=== PATIENT | male | born 1950 | race Caucasian/White ===

== ENCOUNTER 2017-06-18 05:55 | Emergency (ER) | payer OTHER ==
[~2017-06-18] VITALS: Ht 175.3 cm; Wt 104.3 kg
[2017-06-18] MEDS ORDERED: LISINOPRIL10 MG PO (06:10)
[2017-06-18] MEDS ORDERED: ASPIR-LOW81 MG PO (06:10)
[2017-06-18] MEDS ORDERED: LIPITOR20 MG PO (06:10)
[2017-06-18] MEDS ORDERED: CEPHALEXIN500 MG PO (06:56)
--- OUTSIDE RECORDS SUMMARY | 2017-06-18 06:56 | XMS | Encounter Summary ---
Demographics + + + | Address | [address] [place] [address] | | | [place] [address] | + + + | Home Phone | [phone] | + + + | Preferred Language | Unknown | + + + | Marital Status | | + + + | Mandaeism Affiliation | Unknown | + + + | Race | White | + + + | Ethnic Group | Not or | + + + Author + + + | Author | | + + + | Organization | | + + + | Address | [address] | | | [place] [address] | + + + | Phone | [phone] | + + + Reason for Visit + + | None recorded. | + + Instructions None recorded.Discussion Note: None recorded.Patient educational handouts: No inf ormation available. Plan of Care + + + + + | Reminders | | | Provider | | | | | | + + + + + | Appointments | None recorded. | | | + + + + + | Lab | None recorded. | | | + + + + + | Referral | None recorded. | | | + + + + + | Procedures | None recorded. | | | + + + + + | Surgeries | None recorded. | | | + + + + + | Imaging | None recorded. | | | + + + + + Medications + + + + | Name | Start Date | | | | | | + + + + + +---+ | atorvastatin 20 mg tablet | | | Take 1 tablet every day by oral route. | | + +---+ | lisinopril 10 mg-hydrochlorothiazide 12.5 | | | mg tablet TAKE ONE TABLET BY MOUTH DAILY | | + +---+ | Longs Adult Low Strength ASA 81 mg | | | tablet,delayed release Take 1 tablet every | | | day by oral route. | | + +---+ Medications Administered None recorded. Vitals + + + + + | Height | Weight | BMI | Blood Pressure | + + + + + | 5 ft 9 in | 231 lbs | 34.1 kg/m2 | 124/70 mm[Hg] | + + + + + Lab Results +-------+-------+-------+-------+-------+-------+-------+-------+-------+-------+-------+ | Date | Name | Speci | Resul | Inter | Descr | Value | Range | Statu | Addre | | | | | men | t | preta | iptio | | | s | ss | | | | | | | tion | n | | | | | | | | | | | | | | | | | | | | | | | | | | | | | | | | | | | | | | | | | | | | | | | | | | | | | | +-------+-------+-------+-------+-------+-------+-------+-------+-------+-------+-------+ +--------+--------+---+---+---+--------+---+---+-------+--------+ | 03/31/ | Surgic | | | | | | | Final | [facility] | | 2016 | al | | | | Result | | | | Medica | | | Pathol | | | | s | | | | l | | | ogy | | | | | | | | Center | | | | | | | | | | | | | | | | | | | | | | (Main) | | | | | | | | | | | : [address] | | | | | | | | | | | | | | | | | | | | [address] | | | | | | | | | [address] | | | | | | | | | [address], | | | | | | | | | | | [place] | | | | | | | | | | | rg | +--------+--------+---+---+---+--------+---+---+-------+--------+ | 03/10/ | Biopsy | | | | | | | Final | [facility] | | 2016 | , Skin | | | | Result | | | | Medica | | | | | | | s | | | | l | | | (PROC) | | | | | | | | Center | | | | | | | | | | | | | | | | | | | | | | (Main) | | | | | | | | | | | : [address] | | | | | | | | | | | | | | | | | | | | | [address] | | | | | | | | | | [address] | | | | | | | | | | | [address], | | | | | | | | | | | [place] | | | | | | | | | | | rg | +--------+--------+---+---+---+--------+---+---+-------+--------+ Allergies +------+ +------+ + +-------+ | Code | Code System | Name | Reaction | Severity | Onset | +------+ +------+ + +-------+ +------+---+---+---+ | NKDA | | | | +------+---+---+---+ Problems + + + + + + | Name | Status | Onset Date | Source | | | | | | | | + + + + + + + +--------+ + + | Coronary | Active | 06/10/2016 | | | Arteriosclerosis | | | | + +--------+ + + | Hyperlipidemia | Active | | Encounter | + +--------+ + + | Benign Essential | Active | | Encounter | | Hypertension | | | | + +--------+ + + | Benign Prostatic | Active | | Encounter | | Hyperplasia | | | | + +--------+ + + | Actinic Keratosis | Active | | Encounter | + +--------+ + + | Cervical | Active | | Encounter | | Radiculopathy | | | | + +--------+ + + | 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 Vaccine List + + | Vaccine Type | + + | Tdap | + + | 12/12/2008 1 | + + | 12/12/2008 | + + Social History + + +---+ | Smoking Status | Never Smoker | | + + +---+ Past Encounters + + | 04/05/2017Aaron Sunshine MD: [address] [address], Ph. | | | + + | 03/31/2017Primary Malignant Neoplasm of Skin of Face; Actinic KeratosisAaron Sunshine, | | : [address] [employer], [place] [address], Ph. | |Aaron Sunshine MD: [address] [employer], [place] [address], Ph. | + + | 03/15/2017Aaron Sunshine MD: [address] [employer], [place] [address], Ph. | | | + + | 03/10/2017Neoplasm of Uncertain Behavior of SkinAaron Sunshine MD: [address] | | [employer], [place] [address], Ph. | |Aaron Sunshine MD: [address] [address], Ph. | + + History of Present Illness Note:He is here today for a stitch removal<div>
</div><div>removed 9 stitches from right cheek of pt. </div> Review of Systems None recorded. Physical Exam None recorded."
--- OUTSIDE RECORDS SUMMARY | 2017-06-18 06:56 | XMS | Encounter Summary ---
Demographics + + + | Address | [address] [place] [address] | | | [place] [address] | + + + | Home Phone | [phone] | + + + | Preferred Language | Unknown | + + + | Marital Status | | + + + | Church Affiliation | Unknown | + + + | Race | White | + + + | Ethnic Group | Not or | + + + Author + + + | Author | | + + + | Organization | | + + + | Address | [address] | | | [place] [address] | + + + | Phone | [phone] | + + + Reason for Visit + + | None recorded. | + + Instructions + + | 1. Neoplasm of uncertain behavior of skin | + + + + | Discussion Note | + + | 1. Excision, Face. wait on Pathology for billing. Lesion size 1.2 cm, right cheek | | 2. Layered repair 2.6 cm, right cheek. | + + Patient educational handouts: No information available. Plan of Care + + + [...] | 231 lbs | 34.1 kg/m2 | 114/64 mm[Hg] | + + + + + Lab Results None recorded. Allergies +------+ +------+ + +-------+ | Code [...] + | Tdap | + + | 12/11/2008 1 | + + | 12/12/2008 | + + Social History + + +---+ | Smoking Status | Never Smoker | | + + +---+ Past Encounters + + | 03/10/2017Neoplasm of Uncertain Behavior of SkinTimvenessa Sunshine MD: [address] | | [facility] [address], [place] [address], Ph. | |Aaron Sunshine MD: [address], [place] [address], Ph. | + + History of Present Illness Note:Patient is here for a right check lesion excision. Review of Systems +--------+ + | | | +--------+ + | Notes: | non healing lesion, right cheek. | +--------+ + Physical Exam +--------+ + | | | +--------+ + | Notes: | 1.2 cm linear lesion, crusted, non healing | | | superficial ulceration, Rt cheek | +--------+ +"
--- OUTSIDE RECORDS SUMMARY | 2017-06-18 06:56 | XMS | Encounter Summary ---
Demographics + + + | Address | [address] [place] [address] | | | [place] [address] | + + + | Home Phone | [phone] | + + + | Preferred Language | Unknown | + + + | Marital Status | | + + + | Mosque Affiliation | Unknown | + + + | Race | White | + + + | Ethnic Group | Not or | + + + Author + + + | Author | | + + + | Organization | | + + + | Address | [address] | | | [place] [address] | + + + | Phone | [phone] | + + + Reason for Visit + + | None recorded. | + + Instructions + + | 1. Primary malignant neoplasm of skin of face | + + | biopsy, skin (PROC) | + + | 2. Actinic keratosis | + + | actinic keratosis: care instructions | + + + + | Discussion Note | + + | Excision of basal cell carcinoma: 4-5 cm lesion size | | Layered closure: 5 cm | | Cryo, left ear | + + Plan of Care + + + + [...] + + + + | Procedures | Biopsy, Skin (PROC) | 03/31/2017 | [facility] | | | | | Center ([facility]) | + + + + + | [...] | | | | +-------+-------+-------+-------+-------+-------+-------+-------+-------+-------+-------+ +--------+--------+---+---+---+--------+---+---+-------+--------+ | 03/10/ | Biopsy | | | | | | | Final | [facility] | | 2017 | , Skin | | | | [...] + +---+ Past Encounters + + | 03/31/2017Primary Malignant Neoplasm of Skin of Face; Actinic KeratosisAaron Sunshine | | : [address] [address], [place]. | |Aaron Sunshine MD: [address] [place] [address], Ph. | + + | 03/15/2017Aaron Sunshine MD: [address], [place] [address], Ph. | | | + + | 03/10/2017Neoplasm of Uncertain Behavior of SkinAaron Sunshine MD: [address] [facility] | | [facility] [address], [place] [address], Ph. | |Aaron Sunshine MD: [address], [place] [address], Ph. | + + History of Present Illness Note:He is here today for an excision from his right cheek<div>
</div><div>spo t on opening of left ear</div><div>
</div><div>
</div><div>
</div><div>Russell had e xcision of lesion about right cheek on 03/10/2017. I suspected this to be a malignancy and it was a nodular pattern basal cell carcinoma. Unfortunately, although I took what I thought we re generous margins of the grossly evident lesion, that cancer abutted against margins and f urther wider excision is indicated. </div><div>
</div><div>Pt also has a keratosis, left external ear of concern</div> Review of Systems +--------+ + | | | +--------+ + | Notes: | negative ros except for skin lesions | +--------+ + Physical Exam +--------+ + | | | +--------+ + | Notes: | Previous excision has healed very well. | | | This is just under 3 cm excision. upon | | | close inspection, there are multiple | | | additional tiny red papules superior to | | | upper limit of that excision. I suspect pt | | | has multifocal nodular BCC.<div>Area of | | | concern including previous excision and | | | area superior with involvement of distinct | | | small papules of suspicious appearance in | | | 4-5 CM.</div><div>
</div><div>Pt also | | | has an AK involving the external left ear | | | antitragus and cryo is applied to that | | | lesion.</div> | +--------+ +"
--- OUTSIDE RECORDS SUMMARY | 2017-06-18 06:56 | XMS | Encounter Summary ---
Demographics + + + | Address | [address] [place] [address] | | | [place] [address] | + + + | Home Phone | [phone] | + + + | Preferred Language | Unknown | + + + | Marital Status | | + + + | Restoration Affiliation | Unknown | + + + | Race | White | + + + | Ethnic Group | Not or | + + + Author + + + | Author | | + + + | Organization | | + + + | Address | [address] | | | [place] [address] | + + + | Phone | [phone] | + + + Reason for Visit + + | None recorded. | + + Instructions + + | 1. Bee sting | + + | EpiPen 2-Scotty 0.3 mg/0.3 mL injection, auto-injector | + + | 2. Bee sting-induced anaphylaxis | + + | Solu-Medrol (PF) 125 mg/2 mL solution for injection | + + | diphenhydramine 50 mg/mL injection solution | + + | famotidine (PF) 20 mg/2 mL intravenous solution | + + | sodium chloride 0.9 % intravenous solution | + + | prednisone 20 mg tablet | + + | electrocardiogram | + + | CBC w/ auto diff | + + | CMP, serum or plasma | + + | troponin I, serum or plasma | + + | 3. Chronic kidney disease stage 3 | + + + + | Discussion Note | + + | WASP STING INDUCED ANAPHYLAXIS iv saline one liter iv benadryl 50mg iv famotidine 20mg | | iv solumedrol 125mg ekg wnl trop I wnl cbc wnl cmp gfr 57 pt felt much better after | | treatment rx prednisone 20mg, two po daily x five days #10 pt to take cetirizine 10mg po | | bid x five days (pt has this) rx epipen X4. keep at home, car, work. Have fifty mg | | of benadryl w each epipen (the liquid works faster but capsules ok). If gets stung and | | feels bad use the epipen and seek medical care within fifteen minutes. f/u pcp next | | week if still feeling ill otherwise ask pcp for referral to [facility] for skin testing | | and desensitization | |trop I wnl | |cbc wnl | |cmp gfr 57 | | | | | |pt felt much better after treatment | |rx prednisone 20mg, two po daily x five days #10 | |pt to take cetirizine 10mg po bid x five days (pt has this) | | | | | | | |rx epipen X4. keep at home, car, work. Have fifty mg of benadryl w each epipen (the liquid works faster but capsules ok). If gets stung and feels bad use the epipen and seek medical c are within fifteen minutes. | | | | | |f/u pcp next week if still feeling ill otherwise ask pcp for referral to [facility] for skin testing and desensitization | + + Patient educational handouts: No information available. Plan of Care + + + + + | Reminders | | | Provider | | | | | | + + + + + | Appointments | None recorded. | | | + + + + + | Lab | CBC W/ Auto Diff | 05/23/2017 | [facility] | | | | | [place] ([facility]) | + + + + + | | CMP, Serum or | 05/23/2017 | [facility] | | | Plasma | | [place] ([facility]) | + + + + + | | Troponin I, Serum | 05/23/2017 | [facility] | | | or Plasma | | [place] ([facility]) | + + + + + | Referral | None recorded. | | | + + + + + | Procedures | None recorded. | | | + + + + + | Surgeries | None recorded. | | | + + + + + | Imaging | Electrocardiogram | 05/23/2017 | [facility] | | | | | [facility] | + + + + + Medications + + + + | Name | Start Date | | | | | | + + + + + +---+ | atorvastatin 20 mg tablet | | | Take 1 tablet every day by oral route. | | + +---+ | diphenhydramine 50 mg/mL injection | | | solution Take 50 mg by injection route. IV | | | NOW | | + +---+ | EpiPen 2-Scotty 0.3 mg/0.3 mL injection, | | | auto-injector inject after wasp sting and | | | seek medical care within 15minutes | | + +---+ | famotidine (PF) 20 mg/2 mL intravenous | | | solution Inject 20 mg by intravenous | | | route. IV NOW | | + +---+ | lisinopril 10 mg-hydrochlorothiazide 12.5 | | | mg tablet TAKE ONE TABLET BY MOUTH DAILY | | + +---+ | Longs Adult Low Strength ASA 81 mg | | | tablet,delayed release Take 1 tablet every | | | day by oral route. | | + +---+ | prednisone 20 mg tablet Take 2 tablets | | | every day by oral route for 5 days. | | + +---+ | sodium chloride 0.9 % intravenous solution | | | 1 liter normal saline iv now over 1hour | | + +---+ | Solu-Medrol (PF) 125 mg/2 mL solution for | | | injection Take 125 mg by injection route. | | | IV NOW | | + +---+ Medications Administered + + + + | Name | Date | | + + + + + + + | Solu-Medrol (PF) 125 mg/2 mL solution for | [id number]:00 | | injectionTake 125 mg by injection route. | | + + + | diphenhydramine 50 mg/mL injection | [id number]:00 | | solutionTake 50 mg by injection route. | | + + + | famotidine (PF) 20 mg/2 mL intravenous | [id number]:00 | | solutionInject 20 mg by intravenous route. | | + + + | sodium chloride 0.9 % intravenous solution | [id number]:47:00 | | 1 liter normal saline iv now over 1hour | | + + + Vitals + + + + + | Height | Weight | BMI | Blood Pressure | + + + + + | 5 ft 9 in | 239 lbs | 35.3 kg/m2 | 132/86 mm[Hg] | + + + + + [...] | | | | | | +-------+-------+-------+-------+-------+-------+-------+-------+-------+-------+-------+ +--------+--------+---+--------+---+--------+--------+--------+-------+--------+ | 08/20/ | CBC W/ | | Normal | | Wbc | 9.96 | 4.00-1 | Final | [facility] | | 2017 | Auto | | | | | K/mm3 | 1.30 | | [facility] | | | Diff | | | | | | K/mm3 | | l | | | | | | | [...] | | | | | rg | +--------+--------+---+--------+---+--------+--------+--------+-------+--------+ | | | | Normal | | Rbc | 4.37 | 4.30-5 | Final | [facility] | | | | | | | | M/mm3 | .90 | | [facility] | | | | | | | | | M/mm3 | | l | | | | | | | [...] | | | | | rg | +--------+--------+---+--------+---+--------+--------+--------+-------+--------+ | | | | Normal | | Hgb | 13.7 | 13.5-1 | Final | [facility] | | | | | | | | g/dL | 7.5 | | [facility] | | | | | | | | | g/dL | | l | | | | | | | [...] | | | | | rg | +--------+--------+---+--------+---+--------+--------+--------+-------+--------+ | | | | Normal | | Hct | 38.3 % | 37.0-5 | Final | [facility] | | | | | | | | | 3.0 % | | [facility] | | | | | | | | | | | l | | | | | | | [...] | | | | | rg | +--------+--------+---+--------+---+--------+--------+--------+-------+--------+ | | | | Normal | | Mcv | 88 fL | 80-100 | Final | [facility] | | | | | | | | | fL | | [facility] | | | | | | | | | | | l | | | | | | | [...] | | | | | rg | +--------+--------+---+--------+---+--------+--------+--------+-------+--------+ | | | | Normal | | Mch | 31.4 | 26.0-3 | Final | [facility] | | | | | | | | pg | 4.0 pg | | [facility] | | | | | | | | | | | l | | | | | | | [...] | | | | | rg | +--------+--------+---+--------+---+--------+--------+--------+-------+--------+ | | | | Normal | | Mchc | 35.8 | 31.5-3 | Final | [facility] | | | | | | | | g/dL | 6.5 | | [facility] | | | | | | | | | g/dL | | l | | | | | | | [...] | | | | | rg | +--------+--------+---+--------+---+--------+--------+--------+-------+--------+ | | | | Normal | | Rdw | 39.8 | 35.1-4 | Final | [facility] | | | | | | | Sd | fL | 6.3 fL | | [facility] | | | | | | | | | | | l | | | | | | | [...] | | | | | rg | +--------+--------+---+--------+---+--------+--------+--------+-------+--------+ | | | | Normal | | Rdw | 12.4 % | 11.7-1 | Final | [facility] | | | | | | | Cv | | 4.2 % | | [facility] | | | | | | | | | | | l | | | | | | | [...] | | | | | rg | +--------+--------+---+--------+---+--------+--------+--------+-------+--------+ | | | | Normal | | Plt | 240 | 150-40 | Final | [facility] | | | | | | | | K/mm3 | 0 | | [facility] | | | | | | | | | K/mm3 | | l | | | | | | | [...] | | | | | rg | +--------+--------+---+--------+---+--------+--------+--------+-------+--------+ | | | | Normal | | Mpv | 10.2 | 9.1-12 | Final | [facility] | | | | | | | | fL | .4 fL | | [facility] | | | | | | | | | | | l | | | | | | | [...] | | | | | rg | +--------+--------+---+--------+---+--------+--------+--------+-------+--------+ | | | | Normal | | Diff | auto | | Final | [facility] | | | | | | | Type | | | | [facility] | | | | | | | | | | | l | | | | | | | [...] | | | | | rg | +--------+--------+---+--------+---+--------+--------+--------+-------+--------+ | | | | High | | Neut | 84 % | 41-73 | Final | [facility] | | | | | | | % | | % | | [facility]ica | | | | | | | | | | | l | | | | | | | [...] | | | | | rg | +--------+--------+---+--------+---+--------+--------+--------+-------+--------+ | | | | Low | | Lymph | 11 % | 21-46 | Final | [facility] | | | | | | | % | | % | | [facility] | | | | | | | | | | | l | | | | | | | [...] | | | | | rg | +--------+--------+---+--------+---+--------+--------+--------+-------+--------+ | | | | Normal | | [place] | 5 % | 4-13 % | Final | [facility] | | | | | | | % | | | | [facility] | | | | | | | | | | | l | | | | | | | [...] | | | | | rg | +--------+--------+---+--------+---+--------+--------+--------+-------+--------+ | | | | Normal | | Eosin | 0 % | 0-6 % | Final | [facility] | | | | | | | % | | | | [facility] | | | | | | | | | | | l | | | | | | | [...] | | | | | rg | +--------+--------+---+--------+---+--------+--------+--------+-------+--------+ | | | | Normal | | Baso | 0 % | 0-2 % | Final | [facility] | | | | | | | % | | | | [facility] | | | | | | | | | | | l | | | | | | | [...] | | | | | rg | +--------+--------+---+--------+---+--------+--------+--------+-------+--------+ | | | | Normal | | Imm | 1 % | 0-1 % | Final | [facility] | | | | | | | Grans | | | | [facility]ica | | | | | | | % | | | | l | | | | | | | [...] | | | | | rg | +--------+--------+---+--------+---+--------+--------+--------+-------+--------+ | | | | Normal | | Nrbc | 0.0 | 0.0-0. | Final | [facility] | | | | | | | | /100 | 2 /100 | | [facility] | | | | | | | | WBC | WBC | | l | | | | | | | [...] | | | | | rg | +--------+--------+---+--------+---+--------+--------+--------+-------+--------+ | | | | Normal | | Abs | 8.33 | 1.96-9 | Final | [facility] | | | | | | | Neut | K/mm3 | .15 | | [facility] | | | | | | | | | K/mm3 | | l | | | | | | | [...] | | | | | rg | +--------+--------+---+--------+---+--------+--------+--------+-------+--------+ | | | | Normal | | Abs | 1.06 | 0.84-5 | Final | [facility] | | | | | | | Lymph | K/mm3 | .20 | | [facility] | | | | | | | | | K/mm3 | | l | | | | | | | [...] | | | | | rg | +--------+--------+---+--------+---+--------+--------+--------+-------+--------+ | | | | Normal | | Abs | 0.47 | 0.16-1 | Final | [facility] | | | | | | | [place] | K/mm3 | .47 | | [facility] | | | | | | | | | K/mm3 | | l | | | | | | | [...] | | | | | rg | +--------+--------+---+--------+---+--------+--------+--------+-------+--------+ | | | | Normal | | Abs | 0.03 | 0.00-0 | Final | [facility] | | | | | | | Eosin | K/mm3 | .68 | | [facility] | | | | | | | | | K/mm3 | | l | | | | | | | [...] | | | | | rg | +--------+--------+---+--------+---+--------+--------+--------+-------+--------+ | | | | Normal | | Abs | 0.02 | 0.00-0 | Final | [facility] | | | | | | | Baso | K/mm3 | .23 | | [facility] | | | | | | | | | K/mm3 | | l | | | | | | | [...] | | | | | rg | +--------+--------+---+--------+---+--------+--------+--------+-------+--------+ | | | | Normal | | Abs | 0.05 | 0.00-0 | Final | [facility] | | | | | | | Imm | K/mm3 | .10 | | [facility] | | | | | | | Grans | | K/mm3 | | l | | | | | | | [...] | | | | | rg | +--------+--------+---+--------+---+--------+--------+--------+-------+--------+ | | | | Normal | | Abs | 0.00 | 0.00-0 | Final | [facility] | | | | | | | NRBC | K/mm3 | .02 | | [facility] | | | | | | | | | K/mm3 | | l | | | | | | | [...] | | | | | rg | +--------+--------+---+--------+---+--------+--------+--------+-------+--------+ | 08/20/ | CMP, | | Normal | | Na | 141 | 136-14 | Final | [facility] | | 2017 | Serum | | | | | mmol/L | 5 | | [facility] | | | or | | | | | | mmol/L | | l | | | Plasma | | | | | | | [...] | | | | | rg | +--------+--------+---+--------+---+--------+--------+--------+-------+--------+ | | | | Normal | | K | 3.8 | 3.5-5. | Final | [facility] | | | | | | | | mmol/L | 5 | | [facility] | | | | | | | | | mmol/L | | l | | | | | | | [...] | | | | | rg | +--------+--------+---+--------+---+--------+--------+--------+-------+--------+ | | | | Normal | | Cl | 105 | 98-108 | Final | [facility] | | | | | | | | mmol/L | | | [facility] | | | | | | | | | mmol/L | | l | | | | | | | [...] | | | | | rg | +--------+--------+---+--------+---+--------+--------+--------+-------+--------+ | | | | Normal | | Co2 | 28 | 21-32 | Final | [facility] | | | | | | | | mmol/L | mmol/L | | [facility] | | | | | | | | | | | l | | | | | | | [...] | | | | | rg | +--------+--------+---+--------+---+--------+--------+--------+-------+--------+ | | | | Normal | | Anion | 8 | 6-16 | Final | [facility] | | | | | | | Gap | mmol/L | mmol/L | | [facility] | | | | | | | | | | | l | | | | | | | [...] | | | | | rg | +--------+--------+---+--------+---+--------+--------+--------+-------+--------+ | | | | High | | Gluc | 102 | 70-99 | Final | [facility] | | | | | | | | mg/dL | mg/dL | | [facility] | | | | | | | | | | | l | | | | | | | [...] | | | | | rg | +--------+--------+---+--------+---+--------+--------+--------+-------+--------+ | | | | Normal | | Bun | 22 | 8-24 | Final | [facility] | | | | | | | | mg/dL | mg/dL | | [facility] | | | | | | | | | | | l | | | | | | | [...] | | | | | rg | +--------+--------+---+--------+---+--------+--------+--------+-------+--------+ | | | | High | | | 1.28 | 0.60-1 | Final | [facility] | | | | | | | Creati | mg/dL | .20 | | [facility] | | | | | | | nine | | mg/dL | | l | | | | | | | [...] | | | | | rg | +--------+--------+---+--------+---+--------+--------+--------+-------+--------+ | | | | Normal | | | 17.2 % | 12.0-2 | Final | [facility] | | | | | | | BUN/cr | | 0.0 % | | [facility] | | | | | | | eat | | | | l | | | | | | | [...] | | | | | rg | +--------+--------+---+--------+---+--------+--------+--------+-------+--------+ | | | | Low | | Gfr | 57 | 60- | Final | [facility] | | | | | | | | | | | [facility] | | | | | | | | | | | l | | | | | | | [...] | | | | | rg | +--------+--------+---+--------+---+--------+--------+--------+-------+--------+ | | | | Normal | | Ca | 8.8 | 8.5-10 | Final | [facility] | | | | | | | | mg/dL | .1 | | [facility] | | | | | | | | | mg/dL | | l | | | | | | | [...] | | | | | rg | +--------+--------+---+--------+---+--------+--------+--------+-------+--------+ | | | | Normal | | Tot | 6.8 | 6.4-8. | Final | [facility] | | | | | | | Prot | g/dL | 2 g/dL | | [facility] | | | | | | | | | | | l | | | | | | | [...] | | | | | rg | +--------+--------+---+--------+---+--------+--------+--------+-------+--------+ | | | | Normal | | Alb | 4.0 | 3.4-5. | Final | [facility] | | | | | | | | g/dL | 0 g/dL | | [facility] | | | | | | | | | | | l | | | | | | | [...] | | | | | rg | +--------+--------+---+--------+---+--------+--------+--------+-------+--------+ | | | | Normal | | Glob | 2.8 | 2.2-4. | Final | [facility] | | | | | | | | g/dL | 0 g/dL | | [facility] | | | | | | | | | | | l | | | | | | | [...] | | | | | rg | +--------+--------+---+--------+---+--------+--------+--------+-------+--------+ | | | | Normal | | | 1.4 | 0.8-1. | Final | [facility] | | | | | | | Alb/gl | | 8 | | [facility] | | | | | | | ob | | | | l | | | | | | | [...] | | | | | rg | +--------+--------+---+--------+---+--------+--------+--------+-------+--------+ | | | | Normal | | Bili | 0.7 | 0.1-1. | Final | [facility] | | | | | | | Tot | mg/dL | 0 | | [facility] | | | | | | | | | mg/dL | | l | | | | | | | [...] | | | | | rg | +--------+--------+---+--------+---+--------+--------+--------+-------+--------+ | | | | Normal | | Alk | 96 U/L | 40-126 | Final | [facility] | | | | | | | Phos | | U/L | | [facility] | | | | | | | | | | | l | | | | | | | [...] | | | | | rg | +--------+--------+---+--------+---+--------+--------+--------+-------+--------+ | | | | Normal | | Ast | 28 U/L | 12-37 | Final | [facility] | | | | | | | (Sgot) | | U/L | | [facility] | | | | | | | | | | | l | | | | | | | [...] | | | | | rg | +--------+--------+---+--------+---+--------+--------+--------+-------+--------+ | | | | Normal | | Alt | 43 U/L | 12-78 | Final | [facility] | | | | | | | (Sgpt) | | U/L | | [facility] | | | | | | | | | | | l | | | | | | | [...] | | | | | rg | +--------+--------+---+--------+---+--------+--------+--------+-------+--------+ | 08/20/ | Tropon | | Normal | | | <0.017 | 0.000- | Final | [facility] | | 2016 | in I, | | | | Tropon | NG/mL | 0.040 | | [facility] | | | Serum | | | | in I | | NG/mL | | l | | | or | | | | | | | | Center | | | Plasma | | | | | | | [...] | | | | | rg | +--------+--------+---+--------+---+--------+--------+--------+-------+--------+ | | Electr | | | | No | | | | Evergr | | | ocardi | | | | observ | | | | een | | | ogram | | | | ation | | | | Family | | | | | | | record | | | | | | | | | | | ed. | | | | Medic[facility] | | | | | | | | | | | ne PC: | | | | | | | | | | | [address] | | | | | | | | | | | [address] | | | | | [address] | | | | | | | | | | [address], | | | | | | | | | | | [place] | | | | | | | | | | | rg | +--------+--------+---+--------+---+--------+--------+--------+-------+--------+ Allergies +------+--------+------+ + +--------+-------+ | Code | Code | Name | Reaction | Severity | Status | Onset | | | System | | | | | | +------+--------+------+ + +--------+-------+ +------+---+---+---+---+ | NKDA | | | | | +------+---+---+---+---+ Problems + + + + + + [...] | | + +--------+ + + Procedures + + + + + | Date | Name | Performed by | | | | | | | + + + + + + + + + | 05/23/2017 | [facility] | [facility] | | | | [id number] | | | | [place] [address]) | | | | [phone] (Work Place) | + + + + Vaccine List + + | Vaccine Type | + + | Tdap | + + | 12/12/2008 1 | + + | 12/12/2008 | + + Social History + + +---+ | Smoking Status | Never Smoker | | + + +---+ Past Encounters + + | 05/23/2017 | | Bee Sting; Bee Sting-induced Anaphylaxis; Chronic Kidney Disease Stage 3 | | Isaac Clements MD: [address] [address], Ph. 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 no chest tightness, wheeze, distant rash, throat swel ling, sob, </div><div>pt did have some mild chest pain. No hx of bee sting allergy. </di v>Review of Systems:ROS as noted in the HPI Review of Systems None recorded. Physical Exam + + + | | Male Exam - Moderate | + + + | Reported By: | Patient | + + + | Constitutional: | General Appearance: awake, alert, oriented | | | x 3, hydrated, acutely ill | + + + | HEENT: | Ears: normal EACs, normal tympanic | | | membranes. Oropharynx: no pharyngeal | | | erythema, no pharyngeal exudates; no | | | trismus, no abcess, pt has nl voice | + + + | Neck: | Neck: no cervical lymphadenopathy, no | | | thyroid nodules; Supple, non-tender, no | | | supraclavicular adenopathy. No JVD | + + + | Cardiovascular: | Heart Auscultation: RRR, no murmurs | + + + | Lungs: | Auscultation: clear to auscultation | | | bilaterally, no wheezing, no | | | rales/crackles, no rhonchi | + + + | Musculoskeletal:: | Extremities: no edema | + + + | Skin: | Inspection and palpation: no concerning | | | lesions | + + + | Notes: | pt looks ill | + + +"
--- OUTSIDE RECORDS SUMMARY | 2017-06-18 06:56 | XMS | Continuity of Care Document ---
Demographics + + + | Address | [address] [place] [address] | | | [place] [address] | + + + | Home Phone | | + + + | Preferred Language | Unknown | + + + | Marital Status | Unknown | + + + | Taoist Affiliation | Unknown | + + + | Race | Unknown | + + + | Ethnic Group | Unknown | + + + Author + + + | Author | [facility] | + + + | Organization | [facility] | + + + | Address | [address] | | | [place] [address] | + + + | Phone | Unavailable | + + + Support + + + + + | Name | Relationship | Address | Phone | + + + + + | Aaron Sunshine | Caregiver | [address] | | | MD | | [place] [address] | | + + + + + | Red Freire MD | Caregiver | [address] | | | | | [place] | | | | | [address] | | + + + + + | MARTI LISA | [facility] | [address] [place] [address] | | | | | [place] [address] | | + + + + + Care Team Providers + + + + | Care Sort Worker Name | Role | Phone | + + + + | Aaron Sunshine MD | Unavailable | | + + + + Insurance Providers + + + + + | Payer Name | Policy Number | Subscriber Name | Relationship | + + + + + | [employer] - | [id number] | MARTI LISA | SPOUSE | | [place] | | | | + + + + + Advance Directives + + + + | Directive | Response | Recorded Date/Time | + + + + | Status of Advance | Doesn't Have One | 12/16/16 7:46am | | Directive/ | | | + + + + | Information obtained from | Y | 12/16/16 7:46am | | Patient? | | | + + + + | Directives? | N | 12/16/16 7:46am | + + + + Problems No problem information available. Medications Current Home Medications + +------+-------+-------+ + + +--------+ | Medicati | Dose | Units | Route | Directio | Days/Qty | Instruct | Start | | on | | | | ns | | ions | Date | + +------+-------+-------+ + + +--------+ | Aspirin | 81 | MG | PO | Daily | | | | | 81 MG | | | | | | | | | CHEW | | | | | | | | + +------+-------+-------+ + + +--------+ | Lisinopr | 1 | TAB | PO | Daily | | | | | il/Hcthi | | | | | | | | | azid | | | | | | | | | (Zestore | | | | | | | | | tic) 10 | | | | | | | | | MG/12.5 | | | | | | | | | MG TAB | | | | | | | | + +------+-------+-------+ + + +--------+ Social History + + + + | Problem | Response | Recorded Date | + + + + | MENTAL HEALTH PROBLEMS/ | No | 12/16/16 | + + + + + + + + + | Query | Response | Start Date | Stop Date | + + + + + | Smoking status/ | Never Smoker | | | + + + + + Hospital Discharge Instructions No hospital discharge instructions. Plan of Care No plan of care. Functional Status No functional status results. Allergies, Adverse Reactions, Alerts No known allergies. Immunizations No Known History of Immunizations. Vital Signs + + + + | Vital Reading | Collection Date/Time | Result | + + + + | Blood Pressure | 12/16/16 9:52am | 113/72 | + + + + | Patient Temperature | 12/16/16 8:46am | 97.8 | + + + + | Respiratory Rate | 12/16/16 9:52am | 16 | + + + + | Pulse Rate | 12/16/16 9:52am | 62 | + + + + | Bedside Pulse Oximetry | 12/16/16 9:52am | 98 | + + + + | Height | 12/16/16 7:47am | 172.7 cm | + + + + | Weight | 12/16/16 7:47am | 102.68 kg | + + + + | Weight | 12/16/16 7:47am | 226 lb 6 oz | + + + + | Body Mass Index | 12/16/16 7:47am | 34.4 | + + + + Results No known relevant diagnostic tests, laboratory data and/or discharge summary. Procedures No Known History of Procedures. Encounters + + + + + + | Encounter | Location | Arrival/Admit | Discharge/Depar | Attending | | | | Date | t Date | Provider | + + + + + + | Departed | IZA SAUER | 12/16/16 5:29am | 12/16/16 | Red Freire | | Surgical Day | YLUI Orozco GLEN ALLEN | | 10:29am | H MD | | Care | | | | | + + + + + +"
--- OUTSIDE RECORDS SUMMARY | 2017-06-18 06:56 | XMS | Encounter Summary ---
Demographics + + + | Address | [address] [place] [address] | | | [place] [address] | + + + | Home Phone | [phone] | + + + | Preferred Language | Unknown | + + + | Marital Status | | + + + | Oriental Orthodox Affiliation | Unknown | + + + | Race | White | + + + | Ethnic Group | Not or | + + + Author + + + | Author | | + + + | Organization | | + + + | Address | [address] | | | [place] [address] | + + + | Phone | [phone] | + + + Reason for Visit [...] + +---+ Medications Administered None recorded. Vitals None recorded. Lab Results None recorded. Allergies +------+ +------+ [...] + +---+ Past Encounters + + | 03/15/2017Aaron Sunshine MD: [address] [address], . | | | + + | 03/10/2017Neoplasm of Uncertain Behavior of SkinTimvenessa Sunshine MD: [address] | | [place] [address], [place] [address], Ph. | |Aaron Sunshine MD: [address], [place] [address], Ph. | + + History of Present Illness Note:Patient is here for a suture removal on his R cheek. It has been [address] [facility] e his procedure, as recommended by Dr. Johny Sunshine. Review of Systems None recorded. Physical Exam None recorded."
== END 2017-06-18 07:17 | disposition home or self-care (01) ==
LOC: ED 05:55
PROC: 0HQ1XZZ Repair Face Skin, External Approach (ICD-10-PCS; principal; 2017-06-18)
DX: S01.111A Laceration without foreign body of right eyelid and periocular area, initial encounter (principal); I10 Essential (primary) hypertension; Z79.899 Other long term (current) drug therapy; Z79.82 Long term (current) use of aspirin; W01.190A Fall on same level from slipping, tripping and stumbling with subsequent striking against furniture, initial encounter
CPT/HCPCS: 12053; 99283